=== PATIENT | female | born 1965 | race Hispanic/Latino ===

== ENCOUNTER 2021-11-07 19:13 | Emergency (ER) | payer BC ==
[~2021-11-07] VITALS: Ht 154.9 cm; Wt 95.2 kg
[2021-11-07] MEDS ORDERED: HYDROCODON-ACE1 EA10 PO (20:38)
== END 2021-11-07 21:00 | disposition home or self-care (01) ==
LOC: ED 19:13
DX: S83.92XA Sprain of unspecified site of left knee, initial encounter (principal); I10 Essential (primary) hypertension; F17.200 Nicotine dependence, unspecified, uncomplicated; W01.0XXA Fall on same level from slipping, tripping and stumbling without subsequent striking against object, initial encounter
CPT/HCPCS: 73560; 99283-25

== ENCOUNTER 2022-06-01 12:22 | Emergency (ER) | payer BC ==
[~2022-06-01] VITALS: Ht 154.9 cm; Wt 95.2 kg
--- NOTE | ~2022-06-01 | EKG ---
[facility] [address] [facility] [place], [place] [address] Draft EK completed, results pending confirmation PATIENT NAME: ELJESSICA I Electrocardiogram DATE OF : 63 PHYSICIAN: PRELIMINARY REPORT #: [id number] REPORT IS CONFIDENTIAL AND NOT TO BE RELEASED WITHOUT AUTHORIZATION
[~2022-06-01 12:22] MED LIST: HYDROCODON-ACE1 EA10 PO
[2022-06-01] MEDS ORDERED: METFORMIN HCL1000 MG PO (12:40)
[2022-06-01] MEDS ORDERED: ROSUVASTATIN CA20 MG PO (12:40)
[2022-06-01] MEDS ORDERED: LO-DOSE ASPIRIN81 MG PO (12:40)
[2022-06-01] MEDS ORDERED: AMLODIPINE BESYL5 MG PO (12:40)
[2022-06-01] MEDS ORDERED: LISINOPRIL40 MG PO (12:40)
[2022-06-01] MEDS ORDERED: VICTOZA 2-0.6 MG/0.1 SUB-Q (12:41)
--- NOTE | 2022-06-01 20:38 | EKG ---
[facility] [address] [facility] [place], [place] [address] \T\ T wave abnormality, consider inferolateral ischemia Abnormal ECG When compared with ECG of 01-JUN-2022 14:51, (Unconfirmed) No significant change was found Confirmed by VANDANA LINDA MD ([id number]) on 06/01/2022 8:38:26 PM Electronically Signed By: VANDANA LINDA MD 06/01/222037 PATIENT NAME: JESSICA GALLEGOS I Electrocardiogram DATE OF : 63 PHYSICIAN: VANDANA LINDA MD REPORT #: [id number] REPORT IS CONFIDENTIAL AND NOT TO BE RELEASED WITHOUT AUTHORIZATION
--- NOTE | 2022-06-01 20:38 | EKG ---
[facility] [address] [facility] [place], [place] [address] Signed Sinus tachycardia with premature atrial complexes with aberrant conduction ST \T\ T wave abnormality, consider lateral ischemia Abnormal ECG No previous ECGs available Confirmed by VANDANA LINDA MD ([id number] on 06/01/2022 8:38:07 PM Electronically Signed By: VANDANA LINDA MD 06/01/222037 PATIENT NAME: ELJESSICA I Electrocardiogram DATE OF : 63 PHYSICIAN: VANDANA LINDA MD REPORT #: [id number] REPORT IS CONFIDENTIAL AND NOT TO BE RELEASED WITHOUT AUTHORIZATION
== END 2022-06-01 18:33 | disposition short-term general hospital (02) ==
LOC: ED 12:22
DX: I24.9 Acute ischemic heart disease, unspecified (principal); I50.9 Heart failure, unspecified; I11.0 Hypertensive heart disease with heart failure; F17.200 Nicotine dependence, unspecified, uncomplicated; Z79.899 Other long term (current) drug therapy; Z79.82 Long term (current) use of aspirin; Z20.822 Contact with and (suspected) exposure to COVID-19
CPT/HCPCS: 36415; 71045; 80053; 83605; 83880; 84484; 85025; 85379; 87502; 93005; 93010; 94640; 94660; 99406; A9270; C9803; J1644; J1940; U0003

== ENCOUNTER 2024-03-26 08:03 | Emergency (ER) | payer BC ==
[~2024-03-26] VITALS: Ht 154.9 cm; Wt 86.6 kg
[~2024-03-26 08:03] MED LIST changes: +AMLODIPINE BESYL5 MG PO; +ASCORBIC ACID500 M2 PO; +FUROSEMIDE40 MG PO; +HUMALOG100 UNITS/ SUB-Q; +IRON325 M1 PO; +LISINOPRIL40 MG PO; +LO-DOSE ASPIRIN81 MG PO; +METFORMIN HCL1000 MG PO; +METOPROLOL SUCC25 MG PO; +ROSUVASTATIN CA20 MG PO; +TYLENOL EXTRA500 MG PO; +VICTOZA 2-0.6 MG/0.1 SUB-Q
[2024-03-26] MEDS ORDERED: IRON325 M1 PO (08:19)
[2024-03-26] MEDS ORDERED: VITAMIN C500 M1 (08:20)
[2024-03-26] MEDS ORDERED: VITAMIN C500 M4 PO (08:20)
[2024-03-26] MEDS ORDERED: SODIUM CHLORIDE 0.9% 1,000 ML IV ONE (08:30)
[2024-03-26 08:46] LABS: BASOPHILS 0.8 % (0-2); HEMATOCRIT 43.7 % (35.0-50.0); HEMOGLOBIN 14.7 g/dL (12.0-18.0); LYMPHOCYTES 12.8 % (24-44); MCH 34.6 (27-36); MCHC 33.7 g/dl (30-36); MCV 102.8 fl (81-99); MONOCYTES 9.7 % (0-12); NEUTROPHILS 74.7 % (39-80); PLATELET COUNT 298 K/uL (140-440); RBC 4.25 M/ul (4.3-5.7); RDW 14.3 (10.5-15.0)
[2024-03-26 09:34] LABS: ALBUMIN 3.3 g/dL (3.4-5.0); ALBUMIN/GLOBULIN RATIO 0.73 (1.1-2.4); ANION GAP 13.2 (7-21); BILIRUBIN, TOTAL 0.3 ng/dL (0.2-1.0); BUN/CREATININE RATIO 13.09 (6.0-28.6); CALCIUM 8.9 mg/dL (8.5-10.1); CREATININE, SERUM 0.84 mg/dL (0.55-1.02); POTASSIUM 4.2 mmol/L (3.5-5.1); PROTEIN, TOTAL 7.8 g/dL (6.4-8.2)
[2024-03-26 09:58] LABS: ERYTHROCYTE SEDIMENTATION RATE 38
[2024-03-26] MEDS ORDERED: DAPTOmycin 500 MG/10 ML VIAL IV SCH (10:45)
[2024-03-26] MEDS ORDERED: DOXYCYCLINE HY100 MG PO (11:39)
[2024-03-26 11:49] VITALS: BP 163/84
== END 2024-03-26 11:48 | disposition home or self-care (01) ==
LOC: ED 08:03
PROVIDERS: Emergency Medicine
DX: E10.628 Type 1 diabetes mellitus with other skin complications (principal); L08.9 Local infection of the skin and subcutaneous tissue, unspecified; I11.0 Hypertensive heart disease with heart failure; I50.9 Heart failure, unspecified; F17.200 Nicotine dependence, unspecified, uncomplicated; Z79.82 Long term (current) use of aspirin; Z79.899 Other long term (current) drug therapy; Z79.4 Long term (current) use of insulin
CPT/HCPCS: 36415; 73630; 80053; 85025; 85651; 86140; 96374; 99283-25; J0878; J7030

== ENCOUNTER 2024-04-19 | Emergency (ER) | payer BC ==
[~2024-04-19] VITALS: Ht 154.9 cm; Wt 90.0 kg
[~2024-04-19] MED LIST changes: +DOXYCYCLINE HY100 MG PO; +VITAMIN C500 M1; +VITAMIN C500 M4 PO
--- OUTSIDE RECORDS SUMMARY | 2024-04-19 00:04 | XMS ---
PreManage Notification: JESSICA GALLEGOS Security Pocket Closer Events No recent Security Events currently on file CRITERIA MET - [facility] - 2 Visits in 30 Days CARE PROVIDERS There are no care providers on record at this time. Edy has no Care Guidelines for this patient. [facility] COUNT (12 MO.) [facility] NOTE: Visits indicate total known visits. ED/[facility] VISIT TRACKING (12 MO.) 04/19/2024 00:[address] 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
[2024-04-19] MEDS ORDERED: AMLODIPINE BESY10 MG PO (00:15)
[2024-04-19] MEDS ORDERED: METFORMIN HCL1000 MG PO (00:15)
[2024-04-19] MEDS ORDERED: VICTOZA 2-0.6 MG/0.1 SUB-Q (00:16)
[2024-04-19] MEDS ORDERED: TRANEXAMIC ACID 1,000 MG/10 ML AMP TOP ONE (00:45)
[2024-04-19 01:17] VITALS: BP 124/71
== END 2024-04-19 01:24 | disposition home or self-care (01) ==
LOC: ED
DX: S01.511A Laceration without foreign body of lip, initial encounter (principal); I11.0 Hypertensive heart disease with heart failure; I50.9 Heart failure, unspecified; E11.9 Type 2 diabetes mellitus without complications; F17.210 Nicotine dependence, cigarettes, uncomplicated; X58.XXXA Exposure to other specified factors, initial encounter; Z79.82 Long term (current) use of aspirin; Z79.84 Long term (current) use of oral hypoglycemic drugs; Z79.899 Other long term (current) drug therapy
CPT/HCPCS: 99283

== ENCOUNTER 2025-01-20 13:59 | Inpatient (IN) | payer BC ==
[~2025-01-20] VITALS: Ht 152.4 cm; Wt 85.9 kg
--- NOTE | ~2025-01-20 | EKG ---
[facility] [address] [facility] [place], [place] [address] Draft EKG completed, results pending confirmation PATIENT NAME: VIRA GALLEGOSSAMMIE Forrest Electrocardiogram DATE OF : 63 PHYSICIAN: PRELIMINARY REPORT #: [id number] REPORT IS CONFIDENTIAL AND NOT TO BE RELEASED WITHOUT AUTHORIZATION
[~2025-01-20 13:59] MED LIST changes: +AMLODIPINE BESY10 MG PO
[2025-01-20] MEDS ORDERED: ALBUTEROL/IPRATROPIUM 3 ML NEB ONE (14:12)
[2025-01-20] MEDS ORDERED: ALBUTEROL/IPRATROPIUM 3 ML NEB INH ONE (14:15)
[2025-01-20 14:16] LABS: BASOPHILS 1.7 % (0.1-1.2); EOSINOPHILS 2.3 % (0.7-5.8); HEMATOCRIT 47.2 % (34.1-44.9); HEMOGLOBIN 15.4 g/dL (11.2-15.7); LYMPHOCYTES 37.6 % (19.3-51.7); MCH 33.3 PG (25.6-32.2); MCHC 32.6 g/dL (32.2-35.5); MCV 102.2 fL (79.4-94.8); NEUTROPHILS 44.8 % (34.0-71.1); PLATELET COUNT 267 K/uL (182-369); RBC 4.62 M/uL (3.93-5.22)
[2025-01-20 14:23] LABS: INR 1.09 (0.80-1.30); PROTIME 13.7 Sec (11.2-14.2)
[2025-01-20 14:27] LABS: BASE EXCESS, BLOOD GAS -6.5 mmol/L (-2-2); HCO3, BLOOD GAS 25.5 mmol/L (22-26); PCO2, BLOOD GAS 76.1 mmHg (35-45); PH, BLOOD GAS 7.12 (7.35-7.45)
[2025-01-20 14:35] LABS: ALBUMIN 3.1 g/dL (3.4-5.0); ALBUMIN/GLOBULIN RATIO 0.67 (1.1-2.4); BILIRUBIN, TOTAL 0.3 mg/dL (0.2-1.0); BUN/CREATININE RATIO 13.95 (6.0-28.6); CALCIUM 7.4 mg/dL (8.5-10.1); CREATININE, SERUM 0.86 mg/dL (0.55-1.02); PROTEIN, TOTAL 7.7 g/dL (6.4-8.2); TSH, 3RD GENERATION 4.136 uIU/mL (0.358-3.740)
[2025-01-20] MEDS ORDERED: LORazepam 2 MG/ML VIAL IV ONE (15:30)
[2025-01-20] MEDS ORDERED: FUROSEMIDE 100 MG/10 ML VIAL IV ONE (16:00)
[2025-01-20 16:28] LABS: BASE EXCESS, BLOOD GAS -0.9 mmol/L (-2-2); O2 SATURATION, BLOOD GAS 96.1 % (95.0-100.0); PCO2, BLOOD GAS 70.9 mmHg (35-45); PH, BLOOD GAS 7.22 (7.35-7.45); TOTAL CO2, BLOOD GAS 31.1
[2025-01-20 17:26] LABS: AMPHETAMINES, URINE NEGATIVE (NEGATIVE); BARBITURATES, URINE NEGATIVE (NEGATIVE); BENZODIAZEPINE, URINE NEGATIVE (NEGATIVE); BUPRENORPHINE, URINE NEGATIVE (NEGATIVE); CANNABINOID, URINE NEGATIVE (NEGATIVE); COCAINE, URINE NEGATIVE (NEGATIVE); ECSTASY, URINE NEGATIVE (NEGATIVE); FENTANYL, URINE NEGATIVE (NEGATIVE); METHADONE, URINE NEGATIVE (NEGATIVE); OPIATES, URINE NEGATIVE (NEGATIVE); OXYCODONE, URINE NEGATIVE (NEGATIVE); PHENCYCLIDINE, URINE NEGATIVE (NEGATIVE)
[2025-01-20] MEDS ORDERED: ENOXAPARIN SODIUM 40 MG/0.4 ML SYR SUB-Q SCH (17:26)
[2025-01-20] MEDS ORDERED: FOLIC ACID 1 MG/0.2 ML ML IV SCH (17:29)
[2025-01-20] MEDS ORDERED: THIAMINE HCL 200 MG/2 ML VIAL IV SCH (17:29)
[2025-01-20] MEDS ORDERED: DEXTROSE 5% 1,000 ML IV PRN (17:30)
[2025-01-20] MEDS ORDERED: IBLOOD GLUCOSE TEST STRIP 1 EA TEST XX PRN (17:30)
[2025-01-20] MEDS ORDERED: DEXTROSE 50% 50 ML SYR IV PRN ×2 (17:30)
[2025-01-20] MEDS ORDERED: ACETAMINOPHEN 325 MG TAB PO PRN (17:30)
[2025-01-20] MEDS ORDERED: ondansetron HCL 4 MG/2 ML VIAL IV PRN (17:30)
[2025-01-20] MEDS ORDERED: LORazepam 2 MG/ML VIAL IV/IM PRN (17:30)
[2025-01-20] MEDS ORDERED: GLUCAGON,HUMAN RECOMBINANT 1 MG/ML VIAL SUB-Q PRN (17:30)
[2025-01-20] MEDS ORDERED: ALBUTEROL SULFATE 0.083% 3 ML VIAL INH PRN (19:45)
--- NOTE | 2025-01-20 19:45 | NUR ---
PATIENT ARRIVED TO THE UNIT VIA STRETCHER ON BIPAP WITH RT ASSIST. PATIENT MOVED TO THE BED WITH 3 PERSON ASSIST VIA SLIDE SHEET. PATIENT RESPONDS TO VERBAL STIMULI BUT IS FREQUENTLY DROWSY AND DIFFICULT TO UNDERSTAND WITH BIPAP IN PLACE. PATIENT VS STABLE. TOLERATING BIPAP AND LEAVING IN PLACE. OCCATIONAL COUGH NOTED. LUNG SOUNDS ARE COARSE. ABD IS SOFT AND BOWEL SOUNDS ACTIVE. PATIENT REPORTS PAIN WITH ANY TOUCH. SKIN UNDER BREAST IS RED AND PAINFUL. GROIN FOLDS ALSO RED AND PAINFUL. PATIENT REPORTS CRAMPS IN HER LEGS AND YELLS OUT IN PAIN WHEN THIS OCCURS. NEW AND OLD ABRASIONS NOTED ON PRIYA SHINS. AREA CLEANED; LEFT OPEN TO AIR. PATIENT'S SKIN OVERALL IS PALE AND DRY. IV SITES WNL X2. PURE WIC IN PLACE; PATIENT CONTINENT OF HER URINE AND REPORTS NEEDING TO VOID. REMINDED ABOUT PURE WIC, PATIENT UNDERSTANDS AND CAN USE IT. URINE IS CLEAR DILUTE YELLOW. PATIENT IS 1:1 DIRECT OBS DUE TO MENTAL STATUS AND USE OF BIPAP.
[2025-01-20 19:48] VITALS: BP 154/74
--- NOTE | 2025-01-20 19:52 | NUR ---
MD TO RN COMMUNICATION DR. ZHONG PHONED THE CCU TO CHECK ON PT BEING ADMITTED TO RM 128. VBGS Q4H ORDERED. DR. ZHONG WANTS TO BE NOTIFIED IF THEY ARE NOT IMPROVING. PER DR. ZHONG, PT CONSIDERED RESOLVED WHEN PCO < 50 AND PH > 7.38. PRIMARY RN UPDATED.
[2025-01-20 20:00] VITALS: BP 153/73
[2025-01-20 20:17] LABS: PH, VENOUS 7.366 (7.31-7.41)
[2025-01-20 20:30] VITALS: BP 138/61
[2025-01-20 21:00] VITALS: BP 139/68
[2025-01-20] MEDS ORDERED: INSULIN LISPRO 100 UNIT/ML ML SUB-Q SCH (21:00)
[2025-01-20] MEDS ORDERED: IBLOOD GLUCOSE TEST STRIP 1 EA TEST VI SCH (21:00)
[2025-01-20] MEDS ORDERED: MICONAZOLE NITRATE 1 EA BTL TOP SCH (21:00)
[2025-01-20] MEDS ORDERED: MELATONIN 3 MG TAB PO PRN (21:00)
--- NOTE | 2025-01-20 21:00 | NUR ---
PATIENT HAS BEEN UNCOMFORTABLE IN BED. REPORTING BACK PAIN. ATTEMPTS TO REPOSITION UNSUCESSFUL. PATIENT SITTING AT EDGE OF BED. BIPAP REMOVED FOR 1 MIN TO PROVIDE ORAL CARE. PATIENT IS ORIENTED TO SELF, SURROUNDINGS, DATE AND FOLLOWING INSTRUCTIONS. PATIENT DOES NOT REMEMBER THE EVENT LEADING TO HER ADMISSION. BIPAP BACK IN PLACE. CALLED TO TO PROVIDE UPDATE AND REQUEST PAIN MANAGEMENT. ORDERS RECIEVED AND VERIFIED VIA REPEAT BACK. ALSO ORDERS FOR LABS AT 0000 WITH ELECTROLYTES TO BE REPLACED PER PROTOCOL.
[2025-01-20] MEDS ORDERED: HYDROCODONE/ACETA 5/325 TAB PO PRN (21:15)
[2025-01-20] MEDS ORDERED: LIDOCAINE HCL 4% 1 EACH PATCH TD SCH (21:15)
--- NOTE | 2025-01-20 21:45 | NUR ---
PATIENT PROVIDED PRN PAIN MEDS. LIDOCAIN PATCH TO BACK. PATIENT UP TO BSC TO VOID. UNSTEADY ON FEET BUT ABLE TO STAND AND PIVOT WITH 1PA. PATIENT VOIDED AND RETURNED TO BED. ASSISTED TO LAY BACK INTO BED ON HER SIDE. BIPAP IN PLACE. DESAT TO 85% ON ROOM AIR WITH ACTIVITY. DENIES FEELING SOB. RR ELEVATED 35-40. LUNG SOUNDS REMAIN COARSE. REVIEWED PLAN OF CARE WITH PATIENT. SHE IS AGREEABLE TO WEARING BIPAP. PATIENT REMAINS IN DIRECT LINE OF SIGHT OF RN.
[2025-01-20 22:00] VITALS: BP 145/70
[2025-01-20 23:00] VITALS: BP 141/67
--- NOTE | 2025-01-20 23:04 | NUR ---
PATIENT MORE RESTLESS. FEELING SOB AND NOT TOLERATING BIPAP. MULTIPLE ATTEMPTS MADE TO ENCOURAGE HER TO LEAVE MASK IN PLACE. PATIENT SWITCHED TO NC. STARTED AT 3L AND TITRATED TO 5L TO MAINTAIN Sp02 > 88%. LAB CALLED TO DRAW VBG AND LABS AT THIS TIME.
[2025-01-20 23:17] LABS: PH, VENOUS 7.419 (7.31-7.41)
[2025-01-20 23:30] LABS: ANION GAP 12.9 (7-21); BUN/CREATININE RATIO 17.1 (6.0-28.6); CALCIUM 7.7 mg/dL (8.5-10.1); CREATININE, SERUM 0.76 mg/dL (0.55-1.02); POTASSIUM 4.9 mmol/L (3.5-5.1)
[2025-01-21] VITALS (9 sets, daily range): BP systolic 138–154; BP diastolic 60–82
--- NOTE | 2025-01-21 00:03 | NUR ---
PATIENT SITTING UP TO EDGE OF THE BED. PATIENT IS DROWSY BUT HOLDS CONVERSATION. CIWA 8. VS STABLE. RR IMPROVED TO LOW. PATIENT REPORTS FEELING LESS SOB WITH NC VS BIPAP. RT TITRATED O2 TO 3L NC.
[2025-01-21] MEDS ORDERED: MAGNESIUM SULFATE 2 GM/50 ML BAG IV ONE (00:15)
--- NOTE | 2025-01-21 00:45 | NUR ---
PATIENT INCREASINGLY RESTLESS. CIWA > 8. PRN ATIVAN PROVIDED. PATIENT IS ORIENTED BUT FORGETFUL. INCREASING ANXIETY. TOLERATING 3L NC. VS STABLE. ASSISTED BACK INTO BED AND POSITIONED FOR COMFORT. BED ALARM ACTIVE. CALL LIGHT IN REACH. IV MAG STARTED PER ORDER; IV SITE WNL.
--- NOTE | 2025-01-21 02:00 | NUR ---
PATIENT RESTING PEACEFULY. VS STABLE. TOLERATING 3L NC.
--- NOTE | 2025-01-21 04:00 | NUR ---
PATIENT DROWSY BUT AROUSABLE. VS STABLE. PATIENT ALERT TO SELF, SURROUNDINGS, AND FOLLOWING DIRECTIONS. LUNG SOUNDS ARE COARSE. PATIENT REPORTS PAIN IN HER LEGS FROM CRAMPING. ASSISTED TO REPOSITION FOR COMFORT.
--- NOTE | 2025-01-21 05:06 | NUR ---
patient up to bsc to void. patient able to stand and pivot but is unsteady on her feet. assisted to clean and new attends in place. patient into recliner. fresh water provided. patient is drowsy but oriented x4. tolerating 2l nc. denied feeling sob with activity. call light in reach. patient agrees to call for any needs. in direct line of sight from nurses station.
[2025-01-21 05:28] LABS: PH, VENOUS 7.419 (7.31-7.41)
[2025-01-21 05:29] LABS: BASOPHILS 0.7 % (0.1-1.2); EOSINOPHILS 0.4 % (0.7-5.8); HEMATOCRIT 44.8 % (34.1-44.9); HEMOGLOBIN 15.1 g/dL (11.2-15.7); LYMPHOCYTES 6.8 % (19.3-51.7); MCH 33.3 PG (25.6-32.2); MCHC 33.7 g/dL (32.2-35.5); MCV 98.7 fL (79.4-94.8); MONOCYTES 5.5 % (4.7-12.5); NEUTROPHILS 86.2 % (34.0-71.1); PLATELET COUNT 236 K/uL (182-369); RBC 4.54 M/uL (3.93-5.22)
[2025-01-21 06:03] LABS: ALBUMIN 2.9 g/dL (3.4-5.0); ALBUMIN/GLOBULIN RATIO 0.64 (1.1-2.4); ANION GAP 12.9 (7-21); BILIRUBIN, TOTAL 0.7 mg/dL (0.2-1.0); BUN/CREATININE RATIO 14.44 (6.0-28.6); CREATININE, SERUM 0.9 mg/dL (0.55-1.02); MAGNESIUM 2.3 mg/dL (1.8-2.4); POTASSIUM 4.9 mmol/L (3.5-5.1); PROTEIN, TOTAL 7.4 g/dL (6.4-8.2)
[2025-01-21] MEDS ORDERED: MULTIVITAMINS THERAPEUTIC 1 EA TAB PO SCH (08:00)
[2025-01-21 08:21] LABS: PH, VENOUS 7.418 (7.31-7.41)
[2025-01-21] MEDS ORDERED: FUROSEMIDE 40 MG/4 ML VIAL IV ONE (08:30)
--- NOTE | 2025-01-21 08:59 | NUR ---
PT SITTING UP AT EDGE OF BED, CONT TO WEAR BIPAP. SPO2 94%, RR 27 AND HR 99.
--- NOTE | 2025-01-21 09:10 | NUR ---
DR ZHONG IN TO SEE PT.
--- NOTE | 2025-01-21 09:16 | NUR ---
CASE MANAGEMENT IN TO TALK WITH PT
[2025-01-21] MEDS ORDERED: METOPROLOL SUCC25 MG PO (10:09)
[2025-01-21] MEDS ORDERED: ROSUVASTATIN CA20 MG PO (10:09)
[2025-01-21] MEDS ORDERED: HUMALOG100 UNITS/ SUB-Q (10:10)
[2025-01-21] MEDS ORDERED: LISINOPRIL40 MG PO (10:10)
[2025-01-21] MEDS ORDERED: METFORMIN HCL1000 MG PO (10:11)
--- NOTE | 2025-01-21 10:15 | NUR ---
VISITED DURING SPIRITUAL CARE ROUNDS. PT RESTLESS, SHIFTING POSITIONS, DENIED DESIRE TO LAY DOWN DESPITE EYES BEING CLOSED, INDICATED DESIRE TO "SIT AND TALK WITH" GRINDER SET UP OPERATOR. GRINDER SET UP OPERATOR PROVIDED SUPPORTIVE PRESENCE, ANXIETY CONTAINMENT, HOSPITALITY, PRAYER, OFFERED CIRCUITRY NEGATIVE INSPECTOR VISIT. PT EVIDENCED DECREASED RESTLESSNESS, EXPRESSED GRATITUDE, SIGNS OF ANXIETY DECREASED.
--- NOTE | 2025-01-21 10:16 | NUR ---
UR CLINICAL REVIEW: MCG-PER MCG REVIEW MEETS INPT FOR AHRF WITH NEED FOR BIPAP [facility] INPT 01/20/25 @ 9003 ORDER MATCHES REG CLINICALS FAXED TO [facility] FOR AUTH REVEIW DISCHARGE TO HOME PENDING FURTHER CASE MANAGEMENT EVAL 01/23/25
--- NOTE | 2025-01-21 10:31 | NUR ---
PT SITTING UP AT EDGE OF BED.
--- NOTE | 2025-01-21 10:31 | NUR ---
MED REC COMPLETE
--- NOTE | 2025-01-21 11:59 | NUR ---
INTO SEE PATIENT PERSONAL HEALTH INFORMATION REVIEWED. PATIENT LIVES IN A HOUSE WITH AND SON. PATIENT HAS 2 STEPS INTO THE HOME. NO WALKER, CANE OR WHEELCHAIR. PATIENT DOES USE OXYGEN AT HOME [place]. SHE DRIVES AT BASELINE. TALKED WITH PATIENT ABOUT SP ALCOHOL COUNSELING. PATIENT DENIES NEEDS OF COUNSELING. GAVE HER THE HOMELESS AND ADDICTION RESOURCES PHAMPLET FOR RESOURCES. STATES HER RECENTLY HAD SURGERY ON A CANCER SPOT BUT HE STAYS HOME WITH HER. SON WORKS A JOB. IS ABLE TO PICK PATIENT UP WHEN MEDICALLY CLEARED FOR DISCHARGE. PATIENT STATES SHE DOES NOT WANT TO TRAVEL FOR PCP APPOINTMENTS ANYMORE. WILL SEND HER CHART TO THE CLINIC. NO CM NEEDS AT THIS TIME.
[2025-01-21] MEDS ORDERED: PHARMACY RENAL DOSE ADJUSTMENT 1 DOSE MISC PO SCH (12:00)
[2025-01-21 12:12] LABS: PH, VENOUS 7.442 (7.31-7.41)
--- NOTE | 2025-01-21 12:27 | NUR ---
PT OUT TO WALK IN AMARAL WITH FWW AND 1PA, STEADY ON FEET. HR UP TO 115, SPO2 90% ON ROOM AIR WHILE WALKING. BACK TO SIT IN CHAIR AND EAT LUNCH.
[2025-01-21] MEDS ORDERED: ALBUTEROL/IPRATROPIUM 3 ML NEB INH SCH (14:00)
--- NOTE | 2025-01-21 14:00 | NUR ---
PT HAS REMAINED ON ROOM AIR THROUGH THE DAY, LUNGS HAVE LESS CRACKLES, HAS BEEN UP AND DOWN TO CHAIR AND BED AND IS VERY EAGER TO GO HOME.
--- NOTE | 2025-01-21 17:15 | NUR ---
PT WAS GIVEN DC INSTRUCTIONS, ALONG WITH HER SON, AGREES TO SEEK MEDICAL ATTENTION FOR WORSENING SOB, NO QUESTIONS, STATES SHE WILL MAKE FOLLOW UP APPT WITH PCP IN THE MORNING. WHEELED OUT FOR SON TO TAKE HER HOME.
--- NOTE | 2025-01-21 19:12 | NUR ---
PT WAS GIVEN D/C INSTRUCTIONS, ALONG WITH SON, INSTRUCTED TO SEEK MEDICAL ATTENTION IF SHE NOTICES WORSENING SOB AND PT AGREES. WHEELED OUT WITH SON WHO TOOK HER HOME.
[2025-01-21] MEDS ORDERED: LIDOCAINE PATCH REMOVAL 1 EA TD SCH (21:00)
[2025-01-22] MEDS ORDERED: THIAMINE HCL 100 MG TAB PO SCH (08:00)
[2025-01-22] MEDS ORDERED: FOLIC ACID 1 MG TAB PO SCH (08:00)
== END 2025-01-21 17:30 | disposition home or self-care (01) | DRG 896 ==
LOC: ED 13:59 → CCU 17:26 → EDBD 17:26 → CCU 01-21 17:30
PROVIDERS: Emergency Medicine; ADMIT Student in an Organized Health Care Education/Training Program; ATTEND Student in an Organized Health Care Education/Training Program
PROC: 5A09357 Assistance with Respiratory Ventilation, Less than 24 Consecutive Hours, Continuous Positive Airway Pressure (ICD-10-PCS; principal; 2025-01-20)
DX: F10.230 Alcohol dependence with withdrawal, uncomplicated (principal); J96.01 Acute respiratory failure with hypoxia; J81.1 Chronic pulmonary edema; E11.65 Type 2 diabetes mellitus with hyperglycemia; Y90.7 Blood alcohol level of 200-239 mg/100 ml; W16.511A Jumping or diving into swimming pool striking water surface causing drowning and submersion, initial encounter
CPT/HCPCS: 36415; 36600; 71045; 80048; 80053; 80074; 80307; 82140; 82803; 83735; 83880; 84100; 84443; 85025; 85610; 85730; 93005; 93010; 94640; 94660; 94799; A9270; G0480; J1650; J1815; J1938; J2060; J3411; J3475